=== PATIENT | male | born 1935 | race Caucasian/White ===

== ENCOUNTER 2020-05-23 21:23 | Inpatient (IN) | payer MEDICARE ==
[~2020-05-23] VITALS: Ht 167.6 cm; Wt 106.1 kg
[2020-05-23 21:29] VITALS: BP 134/74
[2020-05-23 21:59] LABS: BE -0.7 mmol/L (-2 to +3); PCO2 30.4 mmHg (35.0-45.0); pH 7.477 (7.340-7.450)
[2020-05-23 22:03] LABS: PO2 207.1 mmHg (75.0-100.0)
[2020-05-23 22:09] LABS: HEMATOCRIT 35.2 % (42.0-52.0); HEMOGLOBIN 12.2 gm/dL (14.0-18.0); MCH 31.9 pg (26.0-34.0); MCHC 34.6 g/dL (28.0-37.0); MCV 92.4 fL (80.0-100.0); MPV 7.1 fl. (7.2-11.1); NUCLEATED RBCS 0 /100WBC; PLATELET COUNT* 130 thou/uL (150-400); RBC 3.81 mil/uL (4.50-6.00); RDW-CV 15.1 % (10.5-14.5); WBC 3.3 thou/uL (4.0-11.0)
[2020-05-23] MEDS ORDERED: CARDIZEM CD240 M1 (22:12)
[2020-05-23] MEDS ORDERED: PRAVASTATIN SOD80 MG (22:13)
[2020-05-23] MEDS ORDERED: FUROSEMIDE 20 M20 MG (22:13)
[2020-05-23] MEDS ORDERED: PROSCAR 5MG TABL5 M1 (22:13)
[2020-05-23] MEDS ORDERED: FLOMAX0.4 MG (22:13)
[2020-05-23 22:14] LABS: URINE BILIRUBIN NEGATIVE (Negative); URINE BLOOD 3+ (Negative); URINE CLARITY SL CLOUDY; URINE COLOR YELLOW; URINE GLUCOSE-RANDOM NEGATIVE (Negative); URINE KETONES NEGATIVE (Negative); URINE PROTEIN 2+ (Negative); URINE SPECIFIC GRAVITY 1.025 (1.005-1.030); URINE UROBILINOGEN 0.2 E.U./dl (0.2-1.0)
[2020-05-23] MEDS ORDERED: ASPIRIN EC81 M1 (22:14)
[2020-05-23] MEDS ORDERED: ALBUTEROL (22:14)
[2020-05-23] MEDS ORDERED: METAMUCIL (22:14)
[2020-05-23 22:21] LABS: URINE LEUKOCYTES-REFLEX 2+ (Negative); URINE NITRITE-REFLEX POSITIVE (Negative)
[2020-05-23 22:21] LABS: CALCIUM 8.7 mg/dL (8.5-10.1); CREATININE 1.2 mg/dL (0.6-1.3); POTASSIUM 3.6 mmol/L (3.5-5.1)
[2020-05-23 22:22] LABS: MUCUS None Seen strn/LPF (None Seen); SQUAMOUS 0-3 Few /LPF (0-3); URINE WBC-REFLEX >25 Many /HPF (0-5); WBC CLUMPS Few (None Seen)
[2020-05-23 22:23] LABS: PROTIME 10.8 Seconds (9.20-11.50)
[2020-05-23 22:23] LABS: CASTS None Seen /LPF (None Seen); CRYSTALS None Seen /LPF (None Seen)
[2020-05-23 22:31] LABS: ALBUMIN 2.9 g/dL (3.4-5.0); MAGNESIUM 1.6 mg/dL (1.8-2.4); TOTAL BILIRUBIN 0.7 mg/dL (<0.1-1.0); TOTAL PROTEIN 6.4 g/dL (6.4-8.2)
[2020-05-23 22:36] LABS: ABSOLUTE LYMPHOCYTES 0.2 thou/uL (0.8-5.3); ABSOLUTE NEUTROPHILS 3.1 thou/uL (1.6-8.1); PLATELET ESTIMATE ADEQUATE
[2020-05-23 23:22] LABS: INFLUENZA A ANTIGEN Negative (Negative); INFLUENZA B ANTIGEN Negative (Negative)
[2020-05-24] VITALS (7 sets, daily range): BP systolic 99–146; BP diastolic 61–72
--- NOTE | 2020-05-24 15:22 | EKG ---
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 05/24/20 1522 32 32 Marcus Stoddard MD, [facility] /EPI
[2020-05-25] VITALS: BP 107/45
[2020-05-25 04:00] VITALS: BP 131/63
[2020-05-25 05:43] LABS: HEMATOCRIT 31.3 % (42.0-52.0); HEMOGLOBIN 10.8 gm/dL (14.0-18.0); MCH 32.4 pg (26.0-34.0); MCHC 34.6 g/dL (28.0-37.0); MCV 93.8 fL (80.0-100.0); MPV 7.8 fl. (7.2-11.1); RBC 3.34 mil/uL (4.50-6.00); RDW-CV 15.5 % (10.5-14.5); WBC 7.8 thou/uL (4.0-11.0)
[2020-05-25 06:05] LABS: ALBUMIN 2.2 g/dL (3.4-5.0); CALCIUM 7.8 mg/dL (8.5-10.1); CREATININE 0.9 mg/dL (0.6-1.3); MAGNESIUM 1.8 mg/dL (1.8-2.4); POTASSIUM 3.7 mmol/L (3.5-5.1); TOTAL BILIRUBIN 0.3 mg/dL (<0.1-1.0); TOTAL PROTEIN 5.7 g/dL (6.4-8.2)
[2020-05-25 08:30] VITALS: BP 112/64
[2020-05-25 12:57] VITALS: BP 153/73
[2020-05-25 15:02] LABS: PCO2 27.3 mmHg (35.0-45.0); PO2 91.4 mmHg (75.0-100.0); pH 7.413 (7.340-7.450)
--- NOTE | 2020-05-25 16:06 | EKG ---
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 : 1935 Requested By: Carrie Tobar Order Number: [id number] Reading MD: Davin Garnett Measurements Intervals [place] Rate: 115 P: 45 PA: 162 QRS: 35 QRSD: 99 T: 67 QT: 306 QTc: 424 Interpretive Statements Sinus tachycardia Low voltage, extremity and precordial leads Consider inferior infarct Compared to ECG 05/23/2020 21:33:16 Low QRS voltage now present Myocardial infarct finding still present Electronically Signed On 05-25-2020 16:06:37 MANAGER OF PROJECT MANAGEMENT by Davin Garnett [email or web address] <ELECTRONICALLY SIGNED> By: Davin Garnett MD, FACC 05/25/20 1606 1520 1520 Davin Garnett MD, FAC /EPI
[2020-05-25 16:56] VITALS: BP 130/74
[2020-05-25 22:00] VITALS: BP 142/79
[2020-05-26 04:00] VITALS: BP 90/46
[2020-05-26 04:50] LABS: HEMATOCRIT 32.7 % (42.0-52.0); HEMOGLOBIN 11.1 gm/dL (14.0-18.0); MCH 31.6 pg (26.0-34.0); MCHC 33.9 g/dL (28.0-37.0); MCV 93.2 fL (80.0-100.0); MPV 8.2 fl. (7.2-11.1); RBC 3.51 mil/uL (4.50-6.00); RDW-CV 15.4 % (10.5-14.5)
[2020-05-26 05:05] LABS: ALBUMIN 2.3 g/dL (3.4-5.0); CALCIUM 8.1 mg/dL (8.5-10.1); MAGNESIUM 1.6 mg/dL (1.8-2.4); POTASSIUM 3.5 mmol/L (3.5-5.1); TOTAL BILIRUBIN 0.6 mg/dL (<0.1-1.0); TOTAL PROTEIN 5.9 g/dL (6.4-8.2)
[2020-05-26 06:34] VITALS: BP 99/42
[2020-05-26 09:00] VITALS: BP 121/63
[2020-05-26 16:00] VITALS: BP 114/58
[2020-05-26 20:00] VITALS: BP 113/51
[2020-05-26 23:41] VITALS: BP 97/60
[2020-05-27 04:30] LABS: HEMATOCRIT 29.8 % (42.0-52.0); HEMOGLOBIN 10.1 gm/dL (14.0-18.0); MCH 31.5 pg (26.0-34.0); MCV 92.8 fL (80.0-100.0); MPV 8.3 fl. (7.2-11.1); RBC 3.21 mil/uL (4.50-6.00); RDW-CV 14.9 % (10.5-14.5); WBC 4.9 thou/uL (4.0-11.0)
[2020-05-27 04:58] LABS: CALCIUM 8.7 mg/dL (8.5-10.1); POTASSIUM 3.2 mmol/L (3.5-5.1); TOTAL BILIRUBIN 0.7 mg/dL (<0.1-1.0); TOTAL PROTEIN 5.7 g/dL (6.4-8.2)
[2020-05-27 08:00] VITALS: BP 103/52
[2020-05-27 17:00] VITALS: BP 122/57
[2020-05-27 19:40] VITALS: BP 108/48
[2020-05-28 08:25] LABS: HEMOGLOBIN 10.9 gm/dL (14.0-18.0); MCH 31.3 pg (26.0-34.0); MCHC 34.1 g/dL (28.0-37.0); MCV 91.8 fL (80.0-100.0); MPV 8.1 fl. (7.2-11.1); RBC 3.49 mil/uL (4.50-6.00); RDW-CV 15.1 % (10.5-14.5); WBC 4.2 thou/uL (4.0-11.0)
[2020-05-28 08:36] LABS: CALCIUM 8.4 mg/dL (8.5-10.1); CREATININE 0.9 mg/dL (0.6-1.3); POTASSIUM 3.5 mmol/L (3.5-5.1)
[2020-05-28 12:51] VITALS: BP 134/68
[2020-05-28 16:05] VITALS: BP 121/65
[2020-05-28 20:44] VITALS: BP 134/66
[2020-05-29 08:10] VITALS: BP 128/66
[2020-05-29] MEDS ORDERED: LACTOBACILLUS1 EACH PO (08:38)
[2020-05-29] MEDS ORDERED: CEFUROXIME500 MG PO (08:38)
[2020-05-29 15:44] VITALS: BP 125/61
[2020-05-29 15:52] VITALS: BP 125/61
[2020-05-29 15:59] VITALS: BP 125/61
--- NOTE | 2020-05-29 16:09 | 2DMMODE ---
[place] [address] 2 D/M-MODE ECHOCARDIOGRAM Name: STEPAN ROBERTS Room: [address] ADM IN [place]#: [id number] Admission: 05/23/20 Attend Phys: Sonido Snowden Discharge: Date of : 37 Date of Service: 05/29/20 1609 Report #: [id number] THIS REPORT FOR: cc: FAM - Family physician unknown FAM - Family physician unknown Jeremiah Espinal MD [facility] ~ APPROVED REPORT Study performed: 05/29/2020 13:23:46 EXAM: Comprehensive 2D, Doppler, and color-flow Echocardiogram Patient Location: In-Patient Room #: [facility] Status: routine BSA: 2.14 HR: 94 bpm BP: 134/66 mmHg Rhythm: NSR Other Information Study Quality: Good Indications Dyspnea pulm edema 2D Dimensions IVSd: 10.64 (7-11mm) LVOT Diam: 21.52 (18-24mm) LVDd: 38.69 mm PWd: 9.77 (7-11mm) Ascending Ao: 34.36 (22-36mm) LVDs: 34.16 (25-40mm) Aortic Root: 33.09 mm Volumes Left Atrial Volume (Systole) LA ESV Index: 19.90 mL/m2 Aortic Valve AoV Peak [place].: 2.52 m/s AO Peak Gr.: 25.36 mmHg LVOT Max P.83 mmHg AO Mean Gr.: 13.54 mmHg LVOT Mean P.42 mmHg LVOT Max V: 1.10 m/s AO V2 VTI: 45.59 cm LVOT Mean V: 0.72 m/s CALI (VTI): 1.57 cm2 LVOT V1 VTI: 19.71 [place] [address] 2 D/M-MODE ECHOCARDIOGRAM Name: STEPAN ROBERTS Room: [address] IN .R.#: [id number] Admission: 05/23/20 Attend Phys: Sonido Snowden Discharge: Date of : 37 Date of Service: 05/29/20 1609 Report #: [id number] Mitral Valve E/A Ratio: 0.76 MV Decel. Time: 224.85 ms MV E Max [place].: 1.07 m/s MV PHT: 65.21 ms MVA (PHT): 3.37 cm2 TDI E/Lateral E': 9.73 E/Medial E': 15.29 Medial E' [place].: 0.07 m/s Lateral E' [place].: 0.11 m/s Pulmonary Valve PV Peak [place].: 1.17 m/s PV Peak Gr.: 5.51 mmHg Left Ventricle The left ventricle is normal size. Regional wall motion abnormalities are noted. There is normal left ventricular wall thickness. Left ventricular systolic function is normal. The left ventricular ejection fraction is within the normal range. LVEF is 55-60%. Grade I - abnormal relaxation pattern. Right Ventricle The right ventricle is normal size. The right ventricular systolic function is normal. Atria The left atrium size is normal. The right atrium size is normal. Aortic Valve Aortic valve is calcified. No aortic regurgitation is present. Mild aortic stenosis. Mitral Valve There is mitral annular calcification. The mitral valve is normal in structure. Mild mitral regurgitation. No evidence of mitral valve stenosis. Tricuspid Valve The tricuspid valve is normal in structure. Unable to assess PA pressure. Trace tricuspid regurgitation. Pulmonic Valve The pulmonary valve is normal in structure[place] [address] 2 D/M-MODE ECHOCARDIOGRAM Name: STEPAN ROBERTS Room: [address] IN [facility]#: [id number] Admission: 05/23/20 Attend Phys: Sonido Snowden Discharge: Date of : 37 Date of Service: 05/29/20 1609 Report #: [id number] regurgitation. Great Vessels The aortic root is normal in size. IVC is normal in size and collapses >50% with inspiration. Pericardium There is no pericardial effusion. <Conclusion> LVEF is 55-60%. Mild aortic stenosis. Mild mitral regurgitation. <ELECTRONICALLY SIGNED> By: Jeremiah Espinal MD, [facility] 05/29/20 1609 08 08 Jeremiah Espinal MD, FAC /INF
[2020-05-29 16:41] VITALS: BP 125/61
[2020-05-29 17:11] VITALS: BP 125/61
== END 2020-05-29 17:15 | disposition home health service (06) | DRG 871 ==
LOC: M.ERS 21:23 → M.ORTHSURG 23:53 → M.TBA-ER 23:53 → M.2W 23:53 → M.ORTHSURG 05-24 01:10 → M.2W 05-25 22:03 → M.3W 05-27 15:35
PROVIDERS: Internal Medicine; Personal Emergency Response Attendant; ADMIT Internal Medicine; ATTEND Internal Medicine
PROC: 5A09357 Assistance with Respiratory Ventilation, Less than 24 Consecutive Hours, Continuous Positive Airway Pressure (ICD-10-PCS; principal; 2020-05-24)
PROC: 5A09357 Assistance with Respiratory Ventilation, Less than 24 Consecutive Hours, Continuous Positive Airway Pressure (ICD-10-PCS; 2020-05-25)
PROC: 5A09357 Assistance with Respiratory Ventilation, Less than 24 Consecutive Hours, Continuous Positive Airway Pressure (ICD-10-PCS; 2020-05-26)
PROC: 5A09357 Assistance with Respiratory Ventilation, Less than 24 Consecutive Hours, Continuous Positive Airway Pressure (ICD-10-PCS; 2020-05-28)
DX: A41.51 Sepsis due to Escherichia coli [E. coli] (principal); J96.01 Acute respiratory failure with hypoxia; N39.0 Urinary tract infection, site not specified; J98.11 Atelectasis; E44.0 Moderate protein-calorie malnutrition; Z20.822 Contact with and (suspected) exposure to COVID-19; I10 Essential (primary) hypertension; E78.5 Hyperlipidemia, unspecified; N40.0 Benign prostatic hyperplasia without lower urinary tract symptoms; I25.10 Atherosclerotic heart disease of native coronary artery without angina pectoris; D69.6 Thrombocytopenia, unspecified; R31.9 Hematuria, unspecified; Z95.5 Presence of coronary angioplasty implant and graft; I25.2 Old myocardial infarction; Z87.442 Personal history of urinary calculi; Z90.49 Acquired absence of other specified parts of digestive tract; Z85.038 Personal history of other malignant neoplasm of large intestine; Z95.1 Presence of aortocoronary bypass graft; Z68.37 Body mass index [BMI] 37.0-37.9, adult; Z79.899 Other long term (current) drug therapy